=== PATIENT | male | born 1955 | race American Indian/Alaskan Native ===

== ENCOUNTER 2016-12-31 22:42 | Inpatient (IN) | payer MEDICARE ==
[2017-01-01] MEDS ORDERED: NACL 0.9% 1000 ML 1,000 ML IV ONE ×2 (00:42→00:56)
[2017-01-01] MEDS ORDERED: PROTONIX IV ONE (00:42)
--- NOTE | 2017-01-01 00:44 | Emergency Department Report ---
ED GI Bleed HPI - General Chief complaint: GI Bleed Stated complaint: BLOOD IN STOOL Time Seen by Provider: 01/01/17 00:34 Source: patient, RN notes reviewed Mode of arrival: Ambulatory Limitations: No Limitations - History of Present Illness Initial comments: This is a 61-year-old male. His previously unknown to me. Has a past medical history of hypertension. His primary care doctor is at [facility]; Dr. Thorpe [facility]: Dr. Brown, also at [facility]. Had a colonoscopy 5 years ago, doesn't recall results. Patient presents to the ER complaining of black tarry stool, dark bloody stool, bright red blood per rectum. Symptoms have been going on since Saturday. It is painless. No hematemesis. No recent NSAID use. No abdominal pain. Bleeding is atraumatic. Slightly dizzy. No trauma. MD complaint: gross hematochezia -: Gradual Severity scale (0 -10): 0 Quality: painless Consistency: constant Improves with: none Worsens with: none Associated Symptoms: weakness. denies: abdominal pain, nausea, vomiting, headaches, loss of appetite, malaise, easy bruising, rash - Related Data Allergies Allergy/AdvReac Type Severity Reaction Status Date / Time lisinopril Allergy Swelling Verified 01/01/17 00:18 sildenafil citrate Allergy Unknown Verified 01/01/17 00:18 [From [facility]] ED Review of Systems ROS: Stated complaint: BLOOD IN STOOL Other details as noted in HPI Constitutional: malaise Eyes: denies: vision change ENT: denies: epistaxis Respiratory: denies: cough Cardiovascular: denies: chest pain Gastrointestinal: melena, hematochezia. denies: abdominal pain Genitourinary: denies: urgency, dysuria Musculoskeletal: denies: back pain Skin: denies: lesions Neurological: weakness. denies: headache Psychiatric: denies: anxiety, depression ED Past Medical Hx - Past Medical History Previous Medical History?: Yes Hx Hypertension: Yes - Surgical History Past Surgical History?: No - Social History Smoking Status: Never Smoker Substance Use Type: Alcohol ED Physical Exam - General Limitations: No Limitations General appearance: alert, in no apparent distress - Head Head exam: Present: atraumatic, normocephalic - Eye Eye exam: Present: normal appearance, EOMI. Absent: nystagmus - ENT ENT exam: Present: normal exam, normal orophraynx, mucous membranes moist, normal external ear exam - Neck Neck exam: Present: normal inspection, full ROM. Absent: tenderness, meningismus - Respiratory Respiratory exam: Present: normal lung sounds bilaterally. Absent: respiratory distress, wheezes, rales, rhonchi, stridor, decreased breath sounds - Cardiovascular Cardiovascular Exam: Present: normal rhythm, tachycardia, normal heart sounds. Absent: systolic murmur, diastolic murmur, rubs, gallop - GI/Abdominal GI/Abdominal exam: Present: soft, normal bowel sounds. Absent: distended, tenderness, guarding, rebound, rigid, pulsatile mass - Rectal Rectal exam: Present: normal inspection, normal rectal tone, heme (+) stool, bloody stool - Extremities Exam Extremities exam: Present: normal inspection, full ROM, normal capillary refill. Absent: tenderness, pedal edema, joint swelling, calf tenderness - Back Exam Back exam: Present: normal inspection, full ROM. Absent: tenderness, CVA tenderness (R), CVA tenderness (L), muscle spasm, paraspinal tenderness, vertebral tenderness - Neurological Exam Neurological exam: Present: alert, oriented X3, normal gait, other (Extraocular movements intact. Tongue midline. No facial droop. Facial sensation intact to light touch in the V1, V2, V3 distribution bilaterally. 5 and 5 strength in 4 extremities.. Sensation is intact to light touch in 4 extremities.). Absent : motor sensory deficit - Psychiatric Psychiatric exam: Present: normal affect, normal mood - Skin Skin exam: Present: warm, dry, intact, normal color. Absent: rash ED Course Vital Signs 01/01/17 01/01/17 00:12 00:18 Temperature 98.5 F 98.5 F Pulse Rate 108 H 108 H Respiratory 22 18 Rate Blood Pressure 91/65 Blood Pressure 91/65 [Right] O2 Sat by Pulse 100 99 Oximetry - Reevaluation(s) Reevaluation #1: 01/01/17 00:58 Differential diagnosis: Diverticular bleed, angiodysplasia, diverticulosis, upper GI bleed Assessment and plan: 61-year-old male with minimal hypotension, tachycardia, dark red bloody stool. Most likely lower GI bleed. Blood pressure currently in the low 100s. 2 L of IV fluid ordered. Basic laboratory studies ordered. Gastroenterology paged. He will remain nothing by mouth at this time. Plan to admit for lower GI bleed once initial laboratory studies have resulted Reevaluation #2: 01/01/17 01:30 case discussed with Hospital physician, Dr. Díaz, who accepts the patient to her service. Awaiting callback from gastroenterology. Reevaluation #3: 01/01/17 02:01 case d/w Dr Godwin of GI; his group will follow as a consult ED Medical Decision Making - Lab Data Result diagrams: 01/01/17 01:06 01/01/17 01:06 Vital Signs 01/01/17 01/01/17 00:12 00:18 Temperature 98.5 F 98.5 F Pulse Rate 108 H 108 H Respiratory 22 18 Rate Blood Pressure 91/65 Blood Pressure 91/65 [Right] O2 Sat by Pulse 100 99 Oximetry - EKG Data EKG shows normal: sinus rhythm Rate: tachycardia - EKG Data When compared to previous EKG there are: previous EKG unavailable 01/01/17 00:59 Sinus tachycardia, 107 beats per minute, not morphologically consistent with STEMI, QTC within normal limits, axis within normal limits, no prior for comparison. Critical care attestation.: If time is entered above; I have spent that time in minutes in the direct care of this critically ill patient, excluding procedure time. ED Disposition Clinical Impression: GI bleed Qualifiers: GI bleed type/associated pathology: unspecified gastrointestinal hemorrhage type Qualified Code(s): K92.2 - Gastrointestinal hemorrhage, unspecified Disposition: OP ADMITTED IP TO THIS HOSP Is pt being admited?: Yes Condition: Good Forms: Accompanied Note
[2017-01-01 01:24] LABS: Basophils % (Auto) 0.4 % (0.0-1.8); Eosinophils % (Auto) 0.2 % (0.0-4.3); Hematocrit 30.2 % (35.5-45.6); Hemoglobin 10.1 gm/dl (11.8-15.2); Mean Corpuscular HGB Conc 34 % (32-34); Mean Corpuscular Hemoglobin 32 pg (28-32); Mean Corpuscular Volume 96 fl (84-94); Platelet Count 155 K/mm3 (140-440); Red Blood Count 3.15 M/mm3 (3.65-5.03); Red Cell Distribution Width 12.8 % (13.2-15.2); White Blood Count 9.2 K/mm3 (4.5-11.0)
[2017-01-01 01:37] LABS: INR 1.07 (0.87-1.13); Partial Thromboplastin Time 26.6 Sec. (24.2-36.6)
[2017-01-01 01:46] LABS: Alanine Aminotransferase 27 units/L (7-56); Albumin 3.7 g/dL (3.9-5); Albumin/Globulin Ratio 1.4 %; Alkaline Phosphatase 32 units/L (35-129); Anion Gap 17 mmol/L; Bilirubin,Total 0.3 mg/dL (0.1-1.2); Blood Urea Nitrogen 23 mg/dL (9-20); Calcium 8.3 mg/dL (8.4-10.2); Carbon Dioxide 23 mmol/L (22-30); Chloride 101.1 mmol/L (98-107); Glucose 128 mg/dL (75-100); Potassium 3.6 mmol/L (3.6-5.0); Sodium 137 mmol/L (137-145); Total Protein 6.3 g/dL (6.3-8.2)
[2017-01-01] MEDS ORDERED: DULCOLAX PR PRN (02:26)
[2017-01-01] MEDS ORDERED: MILK OF MAGNESIA PO PRN (02:26)
[2017-01-01] MEDS ORDERED: MORPHINE IV PRN (02:26)
[2017-01-01] MEDS ORDERED: ZOFRAN IV PRN (02:26)
[2017-01-01] MEDS ORDERED: TYLENOL PO PRN (02:26)
[2017-01-01] MEDS ORDERED: APRESOLINE IV PRN (02:32)
--- NOTE | 2017-01-01 02:32 | History and Physical Report ---
History of Present Illness Date of examination: 01/01/17 History of present illness: 61-year-old man with a history of hypertension comes emergency room with complaints of bloody stools since Saturday. He said 1-2 episodes a day. He takes chronic NSAIDS for osteoarthritis of the hips. Patient was scheduled for colonoscopy on Patient denies chest pain, palpitation, shortness of breath, cough, abdominal pain, dysuria, frequency, focal weakness, dysarthria, fever chills, polydipsia polyuria, hot or cold intolerance, easy bruisability, or rash or bleeding from mucosal membrane, rhinorrhea, epistaxis, earache, tinnitus, blurry vision, eye discharge, anxiety, depression. Other review of systems negative PAST SURGICAL HISTORY:None SOCIAL HISTORY:Social alcohol, no tobacco, drugs FAMILY HISTORY: Hypertension Medications and Allergies Allergies Allergy/AdvReac Type Severity Reaction Status Date / Time lisinopril Allergy Swelling Verified 01/01/17 00:18 sildenafil citrate Allergy Unknown Verified 01/01/17 00:18 [From [employer]] Home Medications Medication Instructions Recorded Confirmed Last Taken Type Fluticasone [Flonase] 1 spray NS QDAY 01/01/17 01/02/17 1 Day Ago History Multivit-Min/FA/Calcium/Vit K1 [Hm 1 tab PO DAILY 01/01/17 01/02/17 12/30/16 History One Daily Women's 50+] Tadalafil [Cialis] 20 mg PO QDAY 01/01/17 01/02/17 1 Day Ago History Tamsulosin [Flomax] 0.4 mg PO QDAY 01/01/17 01/01/17 12/30/16 History Zolpidem [Ambien] 10 mg PO QHS 01/01/17 01/01/17 12/30/16 History traMADol [Ultram 50 MG tab] 50 mg PO Q6HR PRN 01/01/17 01/01/17 12/30/16 History Glycerin/Witch Loren Pad [Tucks 1 each TP PRN PRN #1 box 01/04/17 Unknown Rx Pad] Multivitamin Tab [Multiple Vitamin 1 each PO QDAY #30 tablet 01/04/17 Unknown Rx TAB (Theragran)] Exam - Physical Exam Narrative exam: Gen. appearance: Patient lying in bed, no apparent distress HEENT: Normocephalic, atraumatic, pupils equally round and reactive to light, extraocular movement intact, and no sclericterus,. No JVD or thyromegaly or nodule,neck supple, no carotid bruit ,mucous membranes moist, no exudate or erythema Heart: S1, S2, regular rate and rhythm Lungs: Clear to auscultation bilaterally, breathing comfortable Abdomen: Positive bowel sounds, nontender, nondistended, no organomegaly Extremity: No edema, cyanosis, clubbing Skin: No rash, nodules, warm, dry Neuro: Oriented 3, cranial nerves II-12 intact, speech is fluent, motor and sensory intact - Constitutional Vitals: Temp Pulse Resp BP Pulse Ox 98.5 F 108 H 18 91/65 99 01/01/17 00:18 01/01/17 00:18 01/01/17 00:18 01/01/17 00:18 01/01/17 00:18 Results - Labs CBC & Chem 7: 01/03/17 11:14 01/03/17 11:14 Labs: Abnormal lab results 01/01/17 01/01/17 Range/Units 01:06 01:06 RBC 3.15 L (3.65-5.03) M/mm3 Hgb 10.1 L (11.8-15.2) gm/dl Hct 30.2 L (35.5-45.6) % MCV 96 H (84-94) fl RDW 12.8 L (13.2-15.2) % BUN 23 H (9-20) mg/dL Glucose 128 H (75-100) mg/dL Calcium 8.3 L (8.4-10.2) mg/dL Alkaline Phosphatase 32 L (35-129) units/L Albumin 3.7 L (3.9-5) g/dL - Imaging and Cardiology EKG: image reviewed Assessment and Plan GI bleed rule out ulcer versus other Hypertension Admits medicine Start IV fluids, Protonix, consult GI Check serial hemoglobin, start DVT prophylaxis Start IV hydralazine as needed for blood pressure control
--- NOTE | 2017-01-01 02:56 | Admit Criteria Form ---
Admission Criteria Documentation: GASTROINTESTINAL BLEEDING, LOWER Clinical Indications for Admission to Inpatient Care ( Place 'X' for any and all applicable criteria): Admission is indicated for ANY ONE of the following(1)(2)(3)(4)(5): [ X]I. Active gross bleeding per rectum [ ]II. Inpatient admission required rather than observation care (Also use Gastrointestinal Bleeding, Lower: Observation Care as appropriate) because of ANY ONE of the following: [ ]a) Hemodynamic instability that is severe or persistent [ ]b) Anemia requiring inpatient admission as indicated by ALL of the following: [ ]1) Presence of significant clinical finding indicated by ANY ONE of the following: [ ]A. Tachycardia for age [ ]B. Orthostatic vital sign changes [ ]C. Cognitive impairment [ ]D. Heart failure [ ]E. Chest pain [ ]F. Exertional dyspnea [ ]G. Other findings suggesting inadequate perfusion (eg, peripheral or myocardial ischemia, end organ dysfunction) [ ]2) Initial (eg, emergency department, observation care) treatment with transfusion or volume replacement is judged inappropriate (due to severity of the finding) or has been ineffective [ ]c) Severe pain requiring acute inpatient management [ ]d) Absent bowel sounds with complete ileus [ ]e) Signs of intestinal obstruction or peritonitis [A] [ ]f) High-risk low platelet count [ ]g) Severe electrolyte abnormalities requiring inpatient care [ ]h) Acute renal failure [ ]i) High fever or infection requiring inpatient admission as indicated by ANY ONE of the following(8)(9): [ ]1) Appropriate outpatient or observation care antimicrobial treatment unavailable, not effective, or not feasible Documented bacteremia [ ]2) Documented bacteremia [ ]3) Temperature greater than 104.9 degrees F ( 40.5 degrees C) (oral) [ ]4) Temperature greater than 103.1 degrees F ( 39.5 degrees C) (oral) or less than 96.8 degrees F (36 degrees C) (rectal) that does not respond to all emergency treatment measures [ ]j) IV fluid to replace significant ongoing losses ( greater than 3 L/m2 per day) [ ]k) Immediate inpatient surgery needed [ ]l) Parenteral nutrition regimen that must be implemented on inpatient basis [ ]m) Other condition, treatment or monitoring requiring inpatient admission [ ]III. Unstable comorbid illness (renal, hepatic, pulmonary, hematologic, neurologic, or cardiac) [ ]IV. Failure to control bleeding after colonoscopy [ ]V. Coagulopathy [ ]. Suspected or known ischemic colitis(6) [ ]VII. Previous aortic graft placement or known aortic aneurysm Extended stay beyond goal length of stay may be needed for(3)(4)(28): [ ]a) Emergency surgery [ ]b) Coagulation abnormalities(26) [ ]c) Recurrent or persistent bleeding, continued vital sign instability(27)( 28) [ ]d) Active comorbidities (eg, renal insufficiency, heart failure, pre- existing liver disease) The original [employer] content created by [employer] has been revised. The portions of the content which have been revised are identified through the use of italic text or in bold, and [facility] has neither reviewed nor approved the modified material. All other unmodified content is copyright [employer], [employer]. Please see references footnoted in the original [employer] edition 2016 Admission Criteria Met: Yes
[2017-01-01] MEDS ORDERED: NACL 0.9% 1000 ML 1,000 ML IV SCH (03:00)
[2017-01-01 04:16] LABS: Hematocrit 25.5 % (35.5-45.6); Hemoglobin 8.6 gm/dl (11.8-15.2)
[2017-01-01 07:52] LABS: Hematocrit 24.2 % (35.5-45.6); Hemoglobin 8.2 gm/dl (11.8-15.2)
--- NOTE | 2017-01-01 10:33 | Gastroenterology Consultation ---
History of Present Illness - Reason for Consult Consult date: 01/01/17 GI bleed Requesting physician: WINIFRED LEWIS - History of Present Illness Mr Wright is a 61 yo aam with h/o htn who presents with dark and maroon appearing blood per rectum. Symptoms started 2 days prior to arrival, with dark /maroon appearing stools. He has had ~4-5 bloody bm's, last occurring yesterday evening at ~7 pm. Denies abd pain, prior h/o GI bleeds, NSAID use, or hematemesis. Noted to have severe anemia on admission, unknown baseline. Past History Past Medical History: hypertension Past Surgical History: No surgical history Social history: no significant social history Family history: no significant family history Medications and Allergies Allergies Allergy/AdvReac Type Severity Reaction Status Date / Time lisinopril Allergy Swelling Verified 01/01/17 00:18 sildenafil citrate Allergy Unknown Verified 01/01/17 00:18 [From [facility]] Home Medications Medication Instructions Recorded Confirmed Last Taken Type Flomax 0.4 mg PO DAILY 01/01/17 01/01/17 12/30/16 History Fluticasone [Flonase] 1 spray NS QDAY 01/01/17 01/01/17 Unknown History Losartan/Hydrochlorothiazide 1 tab PO DAILY 01/01/17 01/01/17 12/30/16 History [Hyzaar 100-12.5 TAB] Multivit-Min/FA/Calcium/Vit K1 [Hm 1 tab 01/01/17 12/30/16 History One Daily Women's 50+] Tadalafil [Cialis] 20 mg PO QDAY 01/01/17 01/01/17 Unknown History Zolpidem [Ambien] 10 mg PO QHS 01/01/17 01/01/17 12/30/16 History traMADol [Ultram] 50 mg PO Q6HR PRN 01/01/17 01/01/17 12/30/16 History Active Meds: Active Medications Acetaminophen (Tylenol) 650 mg PO Q4H PRN PRN Reason: Pain MILD(1-3)/Fever >100.5/MELARA Bisacodyl (Dulcolax) 10 mg W[place] QDAY PRN PRN Reason: Constipation unrelieved by MOM Hydralazine HCl (Apresoline) 5 mg IV Q6H PRN PRN Reason: Hypertension Sodium Chloride (Nacl 0.9% 1000 Ml) 1,000 mls @ 150 mls/hr IV DIRECT LEILA Magnesium Hydroxide (Milk Of Magnesia) 30 ml PO Q4H PRN PRN Reason: Constipation Morphine Sulfate (Morphine) 2 mg IV Q4H PRN PRN Reason: Pain, Moderate (4-6) Ondansetron HCl (Zofran) 4 mg IV Q8H PRN PRN Reason: N/V unrelieved by Reglan Pantoprazole Sodium (Protonix) 40 mg IV DAILY LEILA Review of Systems - Review of Systems All systems: negative (per HPI) Exam - Constitutional Vital Signs: Temp Pulse Resp BP Pulse Ox 98.3 F 78 18 118/69 99 01/01/17 08:00 01/01/17 08:00 01/01/17 08:00 01/01/17 08:00 01/01/17 08:00 General appearance: no acute distress - EENT Eyes: PERRL, EOM intact ENT: hearing intact, clear oral mucosa - Neck Neck: supple, normal ROM - Respiratory Respiratory effort: normal Respiratory: bilateral: CTA - Cardiovascular Rhythm: regular Heart Sounds: Present: S1 & S2 Extremities: no ischemia, No edema - Gastrointestinal General gastrointestinal: Present: soft, non-tender, non-distended - Integumentary Integumentary: Present: clear, warm - Musculoskeletal Musculoskeletal: normal - Neurologic Neurological: alert and oriented x3 - Psychiatric Psychiatric: appropriate mood/affect - Labs CBC & Chem 7: 01/01/17 06:44 01/01/17 01:06 Lab Results: Laboratory Results - last 24 hr 01/01/17 01/01/17 03:58 06:44 Hgb 8.6 L 8.2 L Hct 25.5 L 24.2 L Assessment and Plan GI bleed - suspect lower source, although pt reports initially having dark appearing (almost black) stools (recently maroon colored). BUN mildly elevated. Will plan for EGD/colonoscopy tomorrow. discussed with pt. Start PPI IV BID dosing, keep hct ~24, clear liquid diet today and colonoscopy prep this evening.
[2017-01-01] MEDS: PROTONIX IV SCH (10:55)
[2017-01-01 11:10] LABS: Hematocrit 24.3 % (35.5-45.6); Hemoglobin 8.2 gm/dl (11.8-15.2)
[2017-01-01 15:42] LABS: Hematocrit 25.5 % (35.5-45.6); Hemoglobin 8.5 gm/dl (11.8-15.2)
[2017-01-01] MEDS ORDERED: DULCOLAX PO ONE (16:00)
[2017-01-01] MEDS ORDERED: GOLYTELY PO ONE (17:00)
[2017-01-02 07:15] LABS: Basophils % (Auto) 0.6 % (0.0-1.8); Hematocrit 22.4 % (35.5-45.6); Hemoglobin 7.7 gm/dl (11.8-15.2); Mean Corpuscular HGB Conc 34 % (32-34); Mean Corpuscular Hemoglobin 33 pg (28-32); Mean Corpuscular Volume 95 fl (84-94); Platelet Count 138 K/mm3 (140-440); Red Blood Count 2.36 M/mm3 (3.65-5.03); White Blood Count 5.9 K/mm3 (4.5-11.0)
[2017-01-02 07:25] LABS: Anion Gap 15 mmol/L; Blood Urea Nitrogen 9 mg/dL (9-20); Calcium 8.2 mg/dL (8.4-10.2); Carbon Dioxide 25 mmol/L (22-30); Chloride 106.4 mmol/L (98-107); Glucose 121 mg/dL (75-100); Potassium 3.4 mmol/L (3.6-5.0); Sodium 143 mmol/L (137-145)
[2017-01-02] MEDS ORDERED: NACL 0.9% 1000 ML 1,000 ML IV SCH (08:00)
--- NOTE | 2017-01-02 08:02 | Anesthesia Consultation ---
Anesthesia Consult and Med Hx Date of service: 01/02/17 - Airway Anesthetic Teeth Evaluation: Good, Bridges (permanent upper bridge) ROM Head & Neck: Adequate Mental/Hyoid Distance: Adequate Mallampati Class: Class II Intubation Access Assessment: Probably Good - Pulmonary Exam CTA: Yes - Cardiac Exam Cardiac Exam: RRR - Pre-Operative Health Status ASA Pre-Surgery Classification: ASA2 Proposed Anesthetic Plan: MAC - Pulmonary Hx Smoking: No Hx Asthma: No Hx Sleep Apnea: No - Cardiovascular System Hx Hypertension: Yes Hx Heart Attack/AMI: No - Central Nervous System Hx Seizures: No CVA: No - Gastrointestinal Hx Gastroesophageal Reflux Disease: No - Endocrine Hx Renal Disease: No (BPH) Hx Liver Disease: No Hx Non-Insulin Dependent Diabetes: No - Hematic Hx Anemia: Yes Hx Sickle Cell Disease: No - Other Systems Hx Cancer: No - Additional Comments Anesthesia Medical History Comments: NAC
--- NOTE | 2017-01-02 08:02 | Anesthesia Day of Surgery ---
Anesthesia Day of Surgery - Day of Surgery Patient Examined: Yes Patient H&P Reviewed: Yes Patient is NPO: Yes
[2017-01-02] MEDS ORDERED: DIPRIVAN 10 MG/ML IV ONE ×3 (08:09)
[2017-01-02] MEDS ORDERED: WATER FOR IRRIG STERILE ONE (08:26)
[2017-01-02] MEDS ORDERED: INFANTS' GAS RELIEF PO ONE (08:29)
--- NOTE | 2017-01-02 08:47 | Post Operative Note ---
Pre-op diagnosis: GI bleed Post-op diagnosis: other (cordova-diverticulosis, blood seen up to ascending colon ( bile in the cecum). Multiple large blood clots in the colon.) Findings: EGD: severe esophagitis, hiatal hernia, duodenitis. No obvious source of bleeding identified. Colonoscopy: Cordova-diverticulosis, fresh/recent appearing blood seen in transverse/left side of colon. no blood in cecum seen. Multiple large clots throughout the transverse and left side of colon. Internal hemorrhoids. Procedure: EGD + colonoscopy Anesthesia: MAC Surgeon: SARAH CERDA Estimated blood loss: none Pathology: none Condition: stable Disposition: floor
--- NOTE | 2017-01-02 08:54 | Post Anesthesia Evaluation ---
- Post Anesthesia Evaluation Patient Participated: Yes Airway Patent: Yes Stable Respiratory Function: Yes Nausea/Vomiting: No Temp > 96.8F: Yes Pain Manageable: Yes Adequeate Hydration: Yes Anesthesia Complications: No Block Receding Appropriately: Not Applicable
--- NOTE | 2017-01-02 08:55 | Event Note ---
Date: 01/02/17 s/p EGD and colonoscopy. EGD did not reveal source of patient's bleeding ( esophagitis, and duodenitis). Colonoscopy showed diffuse severe diverticulosis. There was blood seen in most of the colon, which cleared in the cecum. Multiple large blood clots in the transverse and left side of colon. No active bleeding seen. Impression: Suspected diverticular bleed. No active bleeding seen at time of procedure. Transfuse as needed to keep hct around 24. If patient has further signs of bleeding, recommend IR consult for possible embolization. Keep NPO for time being, if no further bleeding later today, can start clear liquid diet tonight.
--- NOTE | 2017-01-02 09:33 | Operative Report ---
PROCEDURE: EGD. PREOPERATIVE DIAGNOSIS: Gastrointestinal bleed. POSTOPERATIVE DIAGNOSES: Severe esophagitis, hiatal hernia, and mild duodenitis. ANESTHESIA: Monitored anesthesia care. COMPLICATIONS: No immediate complications. ESTIMATED BLOOD LOSS: None. DESCRIPTION OF PROCEDURE: After consent was obtained, the patient was placed in the left lateral decubitus position. The standard upper Fujinon scope was advanced with direct vision through the mouth and into the second portion of the duodenum without difficulty. The views of the mucosa were good. The patient tolerated the procedure fairly well. FINDINGS: ESOPHAGUS: There was severe distal esophagitis and a large hiatal hernia, otherwise the esophagus appeared normal. STOMACH: The stomach appeared normal. Duodenum: Mild erythematous mucosa in the duodenal bulb, otherwise normal duodenum. IMPRESSION: No obvious explanation for patient's GI bleeding identified during EGD. RECOMMENDATIONS: Proceed with colonoscopy. PROCEDURE: Colonoscopy. PREOPERATIVE DIAGNOSIS: Gastrointestinal bleed. POSTOPERATIVE DIAGNOSIS: Preston diverticulosis throughout the colon. Fresh appearing blood seen in the transverse and left side of the colon with multiple large blood clots. ANESTHESIA: Monitored anesthesia care. COMPLICATIONS: No immediate complications. ESTIMATED BLOOD LOSS: None. DESCRIPTION OF PROCEDURE: After consent was obtained, the patient was placed in the left lateral decubitus position. The Fujinon colonoscope was advanced without difficulty to the cecum. The quality of prep was fair. The views of the mucosa were fair (views limited from size and amount of blood clots). The patient tolerated the procedure well. FINDINGS: Diffuse diverticulosis throughout the colon. Blood seen primarily in the left-sided colon and transverse colon. Multiple large blood clots were seen in the transverse and left side of the colon. The cecum contains non-bloody liquid contents (yellow colored). No active bleeding seen during the procedure. There was large internal hemorrhoids. IMPRESSION: Preston diverticulosis with recent appearing blood. No active bleeding seen at the time of the procedure. Suspect bleeding is secondary to diverticulosis. RECOMMENDATIONS: 1. Monitor H and H and transfuse as needed to keep the hematocrit around 24. 2. If patient shows any signs of further bleeding, obtain stat bleeding scan/ CTA and IR consult for possible embolization. 3. Consider Surgery consult if the patient continues to bleed and if IR evaluation is unable to detect source of bleeding. JOB# [id number] MARIANA/NTS LORED
[2017-01-02] MEDS ORDERED: NACL 0.9% 500 ML 500 ML IV ONE (10:57)
--- NOTE | 2017-01-02 13:58 | Progress Note ---
Assessment and Plan Assessment and plan: Zen is a 61-year-old man who presented with blood per rectum 1. Acute blood loss anemia Transfuse 2 units PRBC today, goal is to keep hemoglobin above 8 2. GI bleed GI input appreciated, status post colonoscopy which showed lots of blood and clots in the colon and significant diverticulosis. , recommend IR consult for possible embolization. Keep NPO for time being, if no further bleeding later today, can start clear liquid diet tonight. 3. hypokalemia Replete by mouth History Interval history: He has no complaints, denies any further bleeding per rectum today Hospitalist Physical - Physical exam Narrative exam: General: Patient appears well in no distress HEENT: MMM, EOMI cardiac: S1-S2 heard lungs: clear to auscultation, abdomen: soft, nontender, nondistended bowel sounds positive extremities: no edema clubbing or cyanosis Skin: no rash or lesion Neuro: no focal deficit Psych: appropriate behavior and mood, cognition intact - Constitutional Vitals: Temp Pulse Resp BP Pulse Ox 99.0 F 88 18 122/75 99 01/02/17 13:11 01/02/17 13:11 01/02/17 13:11 01/02/17 13:11 01/02/17 13:11 Results - Labs CBC & Chem 7: 01/02/17 06:34 01/02/17 06:34 Labs: Laboratory Last Values WBC 5.9 K/mm3 (4.5-11.0) 01/02/17 06:34 RBC 2.36 M/mm3 (3.65-5.03) L 01/02/17 06:34 Hgb 7.7 gm/dl (11.8-15.2) L 01/02/17 06:34 Hct 22.4 % (35.5-45.6) L 01/02/17 06:34 MCV 95 fl (84-94) H 01/02/17 06:34 MCH 33 pg (28-32) H 01/02/17 06:34 MCHC 34 % (32-34) 01/02/17 06:34 RDW 13.0 % (13.2-15.2) L 01/02/17 06:34 Plt Count 138 K/mm3 (140-440) L 01/02/17 06:34 Lymph % (Auto) 40.4 % (13.4-35.0) H 01/02/17 06:34 [place] % (Auto) 8.4 % (0.0-7.3) H 01/02/17 06:34 Eos % (Auto) 1.0 % (0.0-4.3) 01/02/17 06:34 Baso % (Auto) 0.6 % (0.0-1.8) 01/02/17 06:34 Lymph # 2.4 K/mm3 (1.2-5.4) 01/02/17 06:34 [place] # 0.5 K/mm3 (0.0-0.8) 01/02/17 06:34 Eos # 0.1 K/mm3 (0.0-0.4) 01/02/17 06:34 Baso # 0.0 K/mm3 (0.0-0.1) 01/02/17 06:34 Seg Neutrophils % 49.6 % (40.0-70.0) 01/02/17 06:34 Seg Neutrophils # 2.9 K/mm3 (1.8-7.7) 01/02/17 06:34 PT 13.8 Sec. (12.2-14.9) 01/01/17 01:06 INR 1.07 (0.87-1.13) 01/01/17 01:06 APTT 26.6 Sec. (24.2-36.6) 01/01/17 01:06 Sodium 143 mmol/L (137-145) 01/02/17 06:34 Potassium 3.4 mmol/L (3.6-5.0) L 01/02/17 06:34 Chloride 106.4 mmol/L (98-107) 01/02/17 06:34 Carbon Dioxide 25 mmol/L (22-30) 01/02/17 06:34 Anion Gap 15 mmol/L 01/02/17 06:34 BUN 9 mg/dL (9-20) 01/02/17 06:34 Creatinine 1.0 mg/dL (0.8-1.5) 01/02/17 06:34 Estimated GFR > 60 ml/min 01/02/17 06:34 BUN/Creatinine Ratio 9.00 % 01/02/17 06:34 Glucose 121 mg/dL (75-100) H 01/02/17 06:34 Calcium 8.2 mg/dL (8.4-10.2) L 01/02/17 06:34 Total Bilirubin 0.3 mg/dL (0.1-1.2) 01/01/17 01:06 AST 23 units/L (5-40) 01/01/17 01:06 ALT 27 units/L (7-56) 01/01/17 01:06 Alkaline Phosphatase 32 units/L (35-129) L 01/01/17 01:06 Total Protein 6.3 g/dL (6.3-8.2) 01/01/17 01:06 Albumin 3.7 g/dL (3.9-5) L 01/01/17 01:06 Albumin/Globulin Ratio 1.4 % 01/01/17 01:06 Blood Type A POSITIVE 01/01/17 01:06 Antibody Screen Negative 01/01/17 01:06 Crossmatch See Detail 01/01/17 01:06
[2017-01-02] MEDS ORDERED: K-DUR PO ONE (14:00)
[2017-01-02] MEDS: PROTONIX IV SCH (18:19)
[2017-01-02] MEDS ORDERED: PROCTOSOL-HC PR ONE (21:31)
[2017-01-02] MEDS ORDERED: ANUCORT-HC PR ONE (22:20)
[2017-01-03] MEDS ORDERED: PROCTOSOL-HC PR PRN (09:06)
[2017-01-03] MEDS: PROTONIX IV SCH (10:12)
--- NOTE | 2017-01-03 11:40 | Gastroenterology Progress Note ---
Assessment and Plan GI bleed - suspect diverticular bleeding. hct stable overnight, denies further bleeding episodes. okay to advance diet. if re-bleeds recommend IR consult/ evaluation. Likely will need iron replacement therapy short time. Subjective Date of service: 01/03/17 Principal diagnosis: GI bleed Interval history: pt seen and examined. denies further bleeding episodes since procedure. denies abd pain. no new complaints today Objective - Constitutional Vitals: Temp Pulse Resp BP Pulse Ox 97.4 F L 86 20 127/77 97 01/03/17 09:34 01/03/17 09:34 01/03/17 09:34 01/03/17 09:34 01/03/17 09:34 General appearance: no acute distress - Respiratory Respiratory effort: normal Respiratory: bilateral: CTA - Cardiovascular Rhythm: regular Heart Sounds: Present: S1 & S2 - Extremities Extremities: No edema - Gastrointestinal General gastrointestinal: Present: soft, non-tender, non-distended, normal bowel sounds - Neurologic Neurological: alert and oriented x3 - Psychiatric Psychiatric: appropriate mood/affect - Labs CBC & Chem 7: 01/02/17 06:34 01/02/17 06:34
[2017-01-03 11:41] LABS: Hematocrit 28.1 % (35.5-45.6); Hemoglobin 9.5 gm/dl (11.8-15.2); Mean Corpuscular HGB Conc 34 % (32-34); Mean Corpuscular Hemoglobin 31 pg (28-32); Mean Corpuscular Volume 92 fl (84-94); Platelet Count 147 K/mm3 (140-440); Red Blood Count 3.04 M/mm3 (3.65-5.03); White Blood Count 6.8 K/mm3 (4.5-11.0)
[2017-01-03 12:05] LABS: Anion Gap 14 mmol/L; Blood Urea Nitrogen 6 mg/dL (9-20); Calcium 8.5 mg/dL (8.4-10.2); Carbon Dioxide 25 mmol/L (22-30); Chloride 109.1 mmol/L (98-107); Glucose 120 mg/dL (75-100); Potassium 3.9 mmol/L (3.6-5.0); Sodium 144 mmol/L (137-145)
[2017-01-03] MEDS ORDERED: TUCKS PAD TP PRN ×2 (15:05→15:06)
--- NOTE | 2017-01-03 18:36 | Progress Note ---
Assessment and Plan Assessment and plan: Zen is a 61-year-old man who presented with blood per rectum 1. Acute blood loss anemia sp transfusion, Hg much improved start oral iron supplement 2. GI bleed GI input appreciated, status post colonoscopy which showed lots of blood and clots in the colon and significant diverticulosis. , recommend IR consult for possible embolization if he rebleeds. advance diet today 3. hypokalemia Replete by mouth , and improved 4. hemorrhoids likely thrombosed given acute pain, tucks and steroid suppositories ordered Tentative DC home tomorrow if he continues to improve History Interval history: He is c/o hemorrhoid pain, denies any further bleeding per rectum today Hospitalist Physical - Physical exam Narrative exam: General: Patient appears well in no distress HEENT: MMM, EOMI cardiac: S1-S2 heard lungs: clear to auscultation, abdomen: soft, nontender, nondistended bowel sounds positive extremities: no edema clubbing or cyanosis Skin: no rash or lesion Neuro: no focal deficit Psych: appropriate behavior and mood, cognition intact - Constitutional Vitals: Temp Pulse Resp BP Pulse Ox 97.1 F L 90 18 124/76 100 01/03/17 13:16 01/03/17 14:00 01/03/17 13:16 01/03/17 13:16 01/03/17 13:16 Results - Labs CBC & Chem 7: 01/03/17 11:14 01/03/17 11:14 Labs: Laboratory Last Values WBC 6.8 K/mm3 (4.5-11.0) 01/03/17 11:14 RBC 3.04 M/mm3 (3.65-5.03) L 01/03/17 11:14 Hgb 9.5 gm/dl (11.8-15.2) L 01/03/17 11:14 Hct 28.1 % (35.5-45.6) L 01/03/17 11:14 MCV 92 fl (84-94) D 01/03/17 11:14 MCH 31 pg (28-32) 01/03/17 11:14 MCHC 34 % (32-34) 01/03/17 11:14 RDW 15.0 % (13.2-15.2) 01/03/17 11:14 Plt Count 147 K/mm3 (140-440) 01/03/17 11:14 Lymph % (Auto) 40.4 % (13.4-35.0) H 01/02/17 06:34 [place] % (Auto) 8.4 % (0.0-7.3) H 01/02/17 06:34 Eos % (Auto) 1.0 % (0.0-4.3) 01/02/17 06:34 Baso % (Auto) 0.6 % (0.0-1.8) 01/02/17 06:34 Lymph # 2.4 K/mm3 (1.2-5.4) 01/02/17 06:34 [place] # 0.5 K/mm3 (0.0-0.8) 01/02/17 06:34 Eos # 0.1 K/mm3 (0.0-0.4) 01/02/17 06:34 Baso # 0.0 K/mm3 (0.0-0.1) 01/02/17 06:34 Seg Neutrophils % 49.6 % (40.0-70.0) 01/02/17 06:34 Seg Neutrophils # 2.9 K/mm3 (1.8-7.7) 01/02/17 06:34 PT 13.8 Sec. (12.2-14.9) 01/01/17 01:06 INR 1.07 (0.87-1.13) 01/01/17 01:06 APTT 26.6 Sec. (24.2-36.6) 01/01/17 01:06 Sodium 144 mmol/L (137-145) 01/03/17 11:14 Potassium 3.9 mmol/L (3.6-5.0) 01/03/17 11:14 Chloride 109.1 mmol/L (98-107) H 01/03/17 11:14 Carbon Dioxide 25 mmol/L (22-30) 01/03/17 11:14 Anion Gap 14 mmol/L 01/03/17 11:14 BUN 6 mg/dL (9-20) L 01/03/17 11:14 Creatinine 1.0 mg/dL (0.8-1.5) 01/03/17 11:14 Estimated GFR > 60 ml/min 01/03/17 11:14 BUN/Creatinine Ratio 6.00 % 01/03/17 11:14 Glucose 120 mg/dL (75-100) H 01/03/17 11:14 Calcium 8.5 mg/dL (8.4-10.2) 01/03/17 11:14 Total Bilirubin 0.3 mg/dL (0.1-1.2) 01/01/17 01:06 AST 23 units/L (5-40) 01/01/17 01:06 ALT 27 units/L (7-56) 01/01/17 01:06 Alkaline Phosphatase 32 units/L (35-129) L 01/01/17 01:06 Total Protein 6.3 g/dL (6.3-8.2) 01/01/17 01:06 Albumin 3.7 g/dL (3.9-5) L 01/01/17 01:06 Albumin/Globulin Ratio 1.4 % 01/01/17 01:06 Blood Type A POSITIVE 01/01/17 01:06 Antibody Screen Negative 01/01/17 01:06 Crossmatch See Detail 01/01/17 01:06
[2017-01-04 08:41] VITALS: BP 127/83
[2017-01-04] MEDS ORDERED: THERAGRAN Tab PO SCH (10:00)
[2017-01-04] MEDS ORDERED: PROTONIX PO SCH (11:00)
--- NOTE | 2017-01-04 12:53 | Discharge Summary ---
Providers - Providers Date of Admission: 01/01/17 02:27 Attending physician: WINIFRED LEWIS MD Primary care physician: [facility] Hospitalization Condition: Good Hospital course: Zen is a 61-year-old man who presented with blood per rectum, he went on to have a colonoscopy that showed diffuse diverticulosis, which was most likely the cause of bleeding. He went on to have 2 units of blood transfused for acute blood loss anemia. He was advised to maintain a high-fiber diet and avoid constipation, he was put on iron supplements prior to discharge. With regards to hyperkalemia, potassium was repleted. He complained of pain due to hemorrhoids, most likely due to thrombosed external hemorrhoids. He was given witch franklin rectal pads. And pain improved Discharge diagnoses 1. Acute blood loss anemia 2. Lower GI bleed due to diverticulosis 3. Hypokalemia 4. Thrombosed hemorrhoids Disposition: DISCHARGED TO HOME OR SELFCARE Time spent for discharge: 35 minutes Core Measure Documentation - Palliative Care Palliative Care/ Comfort Measures: Not Applicable - Core Measures Any of the following diagnoses?: none Exam - Constitutional Vitals: Temp Pulse Resp BP Pulse Ox 98.7 F 78 20 127/83 98 01/04/17 08:00 01/04/17 10:00 01/04/17 10:00 01/04/17 08:00 01/04/17 10:00 General appearance: Present: no acute distress, well-nourished - EENT Eyes: Present: PERRL ENT: hearing intact, clear oral mucosa - Neck Neck: Present: supple, normal ROM - Respiratory Respiratory effort: normal Respiratory: bilateral: CTA - Cardiovascular Heart Sounds: Present: S1 & S2. Absent: rub, click - Extremities Extremities: pulses symmetrical, No edema Peripheral Pulses: within normal limits - Abdominal General gastrointestinal: Present: soft, non-tender, non-distended, normal bowel sounds Male genitourinary: Present: normal - Integumentary Integumentary: Present: clear, warm, dry - Musculoskeletal Musculoskeletal: gait normal, strength equal bilaterally - Psychiatric Psychiatric: appropriate mood/affect, intact judgment & insight - Neurologic Neurologic: CNII-XII intact, moves all extremities Plan Follow up with: PRIMARY CARE, [Primary Care Provider] - 3-5 Days Forms: Accompanied Note Prescriptions: Glycerin/Witch [place] Pad [Tucks Pad] 1 each TP PRN PRN #1 box PRN Reason: Hemorrhoids Multivitamin Tab [Multiple Vitamin TAB (Theragran)] 1 each PO QDAY #30 tablet
== END 2017-01-04 12:30 | disposition home or self-care (01) | DRG 378 ==
LOC: ED 22:42 → 4A 01-01 02:27
PROVIDERS: ADMIT Internal Medicine; ATTEND Internal Medicine
PROC: 0DJ08ZZ Inspection of Upper Intestinal Tract, Via Natural or Artificial Opening Endoscopic (ICD-10-PCS; principal; 2017-01-02)
PROC: 0DJD8ZZ Inspection of Lower Intestinal Tract, Via Natural or Artificial Opening Endoscopic (ICD-10-PCS; 2017-01-02)
PROC: 30233N1 Transfusion of Nonautologous Red Blood Cells into Peripheral Vein, Percutaneous Approach (ICD-10-PCS; 2017-01-02)
DX: K57.91 Diverticulosis of intestine, part unspecified, without perforation or abscess with bleeding (principal); D62 Acute posthemorrhagic anemia; K20.9 Esophagitis, unspecified; I10 Essential (primary) hypertension; K29.80 Duodenitis without bleeding; K44.9 Diaphragmatic hernia without obstruction or gangrene; M19.90 Unspecified osteoarthritis, unspecified site; K64.5 Perianal venous thrombosis; E87.6 Hypokalemia; Z82.49 Family history of ischemic heart disease and other diseases of the circulatory system; Z88.8 Allergy status to other drugs, medicaments and biological substances
CPT/HCPCS: 36415; 80048; 80053; 82270; 85014; 85018; 85025; 85027; 85610; 85730; 86850; 86900; 86901; 86920; 93005; 93010; 96361; 96374; C9113; J2704; J7030; P9016